=== PATIENT | male | born 1980 | race Caucasian/White ===

== ENCOUNTER 2023-09-06 19:34 | Emergency (ER) | payer OTHER, SELFPAY ==
--- NOTE | ~2023-09-06 | XR_ITS ---
EXAM: XR knee LT 3V DATE: 09/06/2023 19:55 HISTORY: patellar dislocation/ reduction . COMPARISON: None available. FINDINGS: Normal mineralization. No fracture or dislocation. No lytic or blastic lesion. Joint space s are maintained. No erosion or periosteal change. Soft tissues within normal limits. IMPRESSION: No acute osseous finding in the left knee. Reviewed, dictated and finalized at location K.
[2023-09-06 19:35] VITALS: BP 136/78; PULSE 82; RESP 25; TEMP 36.4; O2SAT 100
--- NOTE | 2023-09-06 19:42 | ED.GENADULT ---
HPI - General Adult General Chief complaint: Extremity Injury, Lower Stated complaint: knee injury History of Present Illness HPI narrative: 43-year-old male present to emergency department for evaluation of a left patellar dislocation. Patient reports that he was roller-skating when he fell and injured the left knee. Patient denies any other pain or injury. Patient denies striking head denies loss consciousness. Related Data Allergies Allergy/AdvReac Type Severity Reaction Status Date / Time No Known Allergies Allergy Verified 09/06/23 19:44 Review of Systems Review of Systems: All systems reviewed & are unremarkable except as noted in HPI and below Exam Narrative: APPEARANCE: Well appearing, no pain, no distress, well-nourished. HEAD: normocephalic, atraumatic. NECK: Supple. No adenopathy, no masses. RESPIRATORY: Airway patent, respirations nonlabored. Clear to auscultation bilaterally, no rales, rhonchi, wheezing. CARDIOVASCULAR: Regular rate and rhythm without murmurs rubs or gallops. ABDOMINAL: Soft, nontender, nondistended, normal bowel sounds MUSCULOSKELETAL: Left lateral displacement of the left patella, normal appearing knee after reduction NEURO: Alert. Cranial nerves II through XII intact. Grossly SKIN: Warm, dry. Normal Color Course Vital Signs Vital signs: Vital Signs Temperature 97.6 F 09/06/23 19:35 Pulse Rate 82 09/06/23 19:35 Respiratory Rate 25 H 09/06/23 19:35 Blood Pressure 136/78 09/06/23 19:35 Pulse Oximetry 100 09/06/23 19:35 Oxygen Delivery Room Air 09/06/23 19:35 Temperature 97.6 F 09/06/23 19:35 Pulse Rate 82 09/06/23 19:35 Respiratory Rate 25 H 09/06/23 19:35 Blood Pressure 136/78 09/06/23 19:35 Pulse Oximetry 100 09/06/23 19:35 Oxygen Delivery Room Air 09/06/23 19:35 Procedures Orthopedic Joint Reduction Joint #1: Time Out Performed: Yes Side: left Joint Reduction Location: knee/patella Pre-Procedure Neuro Vascular Exam: normal Technique used: direct manipulation Post-reduction neuro exam: intact Post-reduction vascular: intact Post Reduction X-Ray Obtained: Yes Post Reduction X-Ray Results: reduced Splint Applied: Yes Patient Tolerated Procedure: well and no complications Medical Decision Making MDM Narrative Medical decision making narrative: 43-year-old male presents emergency department for evaluation for left patellar dislocation. Patient's patella was reduced and x-ray showed no acute abnormality of the knee. Patient was placed in knee immobilizer provided crutches for limited weight-bearing. Patient was provided follow-up with Orthopedics. Differential Diagnosis Differential Diagnosis: Internal derangement of knee, patellar dislocation Vital Signs Vital Signs: Vital Signs Temperature 97.6 F 09/06/23 19:35 Pulse Rate 82 09/06/23 19:35 Respiratory Rate 25 H 09/06/23 19:35 Blood Pressure 136/78 09/06/23 19:35 Pulse Oximetry 100 09/06/23 19:35 Oxygen Delivery Room Air 09/06/23 19:35 Temperature 97.6 F 09/06/23 19:35 Pulse Rate 82 09/06/23 19:35 Respiratory Rate 25 H 09/06/23 19:35 Blood Pressure 136/78 09/06/23 19:35 Pulse Oximetry 100 09/06/23 19:35 Oxygen Delivery Room Air 09/06/23 19:35 Discharge Plan Discharge Clinical Impression: Patellar dislocation Patient Disposition: Home, Self-Care Condition: Stable Instructions: Antibiotic Form, Crutch Instructions (ED), Knee Immobilizer (ED) Additional Instructions: knee immobilizer as directed. Crutches for limited weight-bearing. Have close follow-up with Orthopedics. If you have any worsening symptoms please call or return to the emergency department. Follow-up/Referrals: Marcus Barahona MD [Physician] -
[2023-09-06] MEDS: HYDROcodone/acetaminophen (*CRX) 5-325 MG TABLET 1 TAB PO (20:03)
[2023-09-06] MEDS: CYCLOBENZAPRINE HCL 10 MG TABLET PO (20:03)
== END 2023-09-06 21:14 | disposition home or self-care (01) ==
PROVIDERS: Emergency Provider Emergency Medicine
DX: S83.005A Unspecified dislocation of left patella, initial encounter (principal); W18.39XA Other fall on same level, initial encounter; Y93.51 Activity, roller skating (inline) and skateboarding
CPT/HCPCS: 27560; 73562; 99285; A9270